=== PATIENT | female | born 1990 | race Two or more races ===

== ENCOUNTER 2024-11-23 10:18 | Emergency (ER) | payer BC, SELFPAY ==
[2024-11-23 10:23] VITALS: BP 114/63
[2024-11-23 11:45] VITALS: BMI 29.4
--- NOTE | 2024-11-23 12:20 | ED.GENMED ---
History of Present Illness
General
Chief Complaint: Back Pain
Source: patient
Exam Limitations: none
Time Seen by Provider: 11/23/24 11:08
Nursing documentation reviewed up to this point in time: agreed with
History of Present Illness
History of Present Illness:
Patient is a 33-year-old female with history of scoliosis presents to the ER for evaluation. She was bending over bathing her child last night and when she stood up felt sudden pain in her lumbar area. Denies any trauma. Pain is mostly in her
lumbar region she felt a little discomfort in her groin that resolved. She denies any bowel or bladder incontinence. She has been taking ibuprofen however this has not helped her pain. She denies any lower extremity weakness. She denies any
urinary frequency urgency or dysuria. Last menstrual period 1 month ago she is due for her period in the next several days. She denies uses condoms
Phy Exam
General Physical Exam
General Presentation: no apparent distress
General age: appears stated age
General Skin: warm and dry
General Habitus: normal
General Mental: alert
General Hydration: appears well hydrated
Neurological Exam
Neurological Exam: alert, oriented x3, no motor deficits, normal reflexs, no sensory deficits and other (Normal dorsiflexion plantarflexion bilaterally negative straight leg raise intact distal sensation)
Musculoskeletal Exam
Musculoskeletal Exam: other (normal inspection to lumbar region mild paralumbar tenderness ; no cva tenderness)
Skin Exam
Skin Exam: normal color and warm/dry
Psychiatric Exam
Psychiatric Exam: normal mood/affect
Course
Orders/Labs/Results
Orders:
Orders
11/23/24 12:19
Acetaminophen [Tylenol] 1,000 mg PO NOW STA
Cyclobenzaprine HCl [Flexeril] 10 mg PO NOW STA
Dexamethasone Pf [Decadron] 10 mg PO NOW STA
11/23/24 12:19
Lidocaine [Lidocaine 4% Patch] 1 patch TOPICAL NOW STA
Apply Lidocaine patch(s) to:: lumbar back
Vital Signs
Initial and Last Documented VS:
Initial Vital Signs
Temp Pulse Resp BP Pulse Ox
98.0 F 89 16 114/63 98
11/23/24 10:23 11/23/24 10:23 11/23/24 10:23 11/23/24 10:23 11/23/24 10:23
Last Documented Vital Signs
Temp Pulse Resp BP Pulse Ox
98.0 F 89 16 114/63 98
11/23/24 10:23 11/23/24 10:23 11/23/24 10:23 11/23/24 10:23 11/23/24 10:23
MDM/Problems Addressed
Differential Diagnosis Includes:
Not limited to muscle sprain strain
MDM/Problems Addressed:
Symptoms are consistent muscle sprain strain. No radicular signs, and normal neurological exam. Will DC with 1 dose of Decadron today however we will hold off on steroids and have patient take NSAIDs along with Tylenol Flexeril as needed and
lidocaine patch. Discussed close the patient follow-up family doctor and Ortho if needed.
Chronic conditions affecting care:
Scoliosis
*Pulse Oximetry
SaO2: 98
Oxygen Mode of Delivery: Room air
Patient hypoxic: no
*Critical Care Note
Total Time (30-74mins, 75-104mins- exclusive of procedures): Not Applicable
ED Attending Note
-
Portions of this chart may have been created with voice recognition software.� Occasional wrong word or��sound alike� substitutions may have occurred due to the inherent limitations of voice recognition software.
Discharge Plan
Departure
Patient Disposition: Home (Routine Discharge)
Date of Disposition: 11/23/24
Time of Disposition: 12:24
Patient with high blood pressure during this ER visit?: No
Condition: Fair
Covid-19: Not Applicable
Discharge Problem:
Lumbar strain
Instructions: Low Back Pain (DC), Muscle strain - ED (DC)
Prescriptions:
New
cyclobenzaprine 10 mg tablet
10 mg PO Q8H PRN (Reason: muscle spasm) Qty: 10 0RF
lidocaine 5 % adhesive patch,medicated
1 patch topical DAILY Qty: 15 0RF
Referrals:
NONE,* [Family Provider, Internal Medicine]
Claudio Santiago MD [Active, Orthopedics]
Activity Restrictions/Additional Instructions:
As discussed ice the affected area for the next 24 hours followed by warm moist heat 20 minutes at a time several times a day. Today you may continue to take Flexeril as needed every 8 hours and Tylenol. Tomorrow you may start ibuprofen every 8
hours alternating with Tylenol. You may continue Flexeril 10 mg every 8 hours as needed . This medication is a muscle laxer will cause drowsiness. No driving or drinking alcohol while taking this medication.
See family doctor in the next several days for reevaluation return if any worsening of symptoms of increasing pain loss of bowel or bladder weakness lower extremities. Follow-up with orthopedics if needed.
As discussed avoid lifting and bending however gentle walking is okay and encouraged.
Interventions
Interventions:
*Risk Screen - Suicide Last Done: 11/23/24 10:23
*General Assessment Last Done: 11/23/24 11:45
*Neglect/Abuse Screening Last Done: 11/23/24 10:23
*ED- Fall Risk Assessment Last Done: 11/23/24 11:45
*ED COVID-19 Vaccine History Last Done: 11/23/24 11:47
ED-Musculoskeletal Assessment Last Done: 11/23/24 11:45
Discharge Date and Time
Print Language: BURMESE
[2024-11-23] MEDS: TYLENOL 1000 MG PO (12:35)
[2024-11-23] MEDS: DECADRON 10 MG PO (12:35)
[2024-11-23] MEDS: FLEXERIL 10 MG PO (12:35)
[2024-11-23] MEDS: LIDOCAINE 4% PATCH 1 PATCH TOPICAL (12:35)
--- NOTE | 2024-11-23 12:51 | EDRN ---
Reviewed discharge instructions with patient. Verbalized understanding. Ambulated with steady gait to the lobby.
[2024-11-23 12:52] VITALS: BP 116/74
== END 2024-11-23 12:53 | disposition home or self-care (01) ==
LOC: EMR 10:18
PROVIDERS: EMERGENCY PHYSICIAN Emergency Medicine
DX: S39.012A Strain of muscle, fascia and tendon of lower back, initial encounter (principal); X50.1XXA Overexertion from prolonged static or awkward postures, initial encounter; M41.9 Scoliosis, unspecified
CPT/HCPCS: 99283

== ENCOUNTER 2025-02-22 09:51 | Emergency (ER) | payer OTHER, SELFPAY ==
[2025-02-22 09:58] VITALS: BP 156/83
[2025-02-22 10:20] LABS: Urine Character Clear (Clear)
--- NOTE | 2025-02-22 10:23 | ED.GENMED ---
History of Present Illness
General
Chief Complaint: Abdominal Pain
Source: patient
Exam Limitations: none
Time Seen by Provider: 02/22/25 10:07
History of Present Illness
History of Present Illness:
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 Symptoms began yesterday morning. She reports an intermittent sharp pain in her right upper quadrant. She also noticed foul-smelling urine a few
days ago. She has chronic palpitations but states that her heart is more 'stingy' than usual. Patient has been researching her symptoms online and she is worried due to her history of polysplenia. She denies any postprandial pain or pleuritic
pain. No shortness of breath, fevers, vomiting. No prior abdominal surgeries.
Phy Exam
General Physical Exam
General Presentation: well appearing and no apparent distress
General Skin: warm and dry
General Habitus: normal
General Mental: alert
ENT Exam
ENT Exam: normocephalic
Cardiovascular Exam
Cardiovascular Exam: regular rate/rhythm and no murmur
Pulmonary Exam
Pulmonary Exam: lungs clear, no respiratory distress, no rales, no crackles, no rhonchi and no wheezing
Gastrointestinal Exam
Gastrointestinal Exam: non tender, soft, non distended and no cva tenderness
Neurological Exam
Neurological Exam: alert
Nolan Coma Scale
Eye Opening: Spontaneous
Verbal Response: Oriented
Motor Response: Obeys Commands
GCS Total Score: 15
Skin Exam
Skin Exam: normal color and warm/dry
Psychiatric Exam
Psychiatric Exam: normal mood/affect
Course
Orders/Labs/Results
Orders:
Orders
02/22/25 10:02
Electrocardiogram (*1) Urgent
Reason for Study: Abdominal Pain
EKG- Treatment ONCE
Test Result ONCE
02/22/25 10:05
Urinalysis Reflex To Culture Urgent
Date Specimen was Collected: 02/22/25
Time Specimen was Collected: 10:02
Urine Microscopic Reflex Cult Urgent
Urine Culture Urgent
[facility] Source: U
Specimen Description:
Date Specimen was Collected: 02/22/25
Time Specimen was Collected: 10:02
02/22/25 10:36
CT Abd/pelvis W Iv Cont Urgent
Comment:
Reason For Exam: RUQ pain, hx of situs inversus
02/22/25 10:39
Complete Blood Count/With Diff Urgent
Comprehensive Metabolic Panel Urgent
HCG, Serum Qualitative Screen Urgent
Lipase Urgent
02/22/25 10:42
Troponin I Urgent
Abnormal Lab Results
02/22/25 02/22/25
10:05 10:39
RBC 4.08 L 10^6/uL
(4.20-5.40)
Hct 35.3 L %
(37.0-47.0)
Absolute Monos (auto) 0.9 H 10^3/uL
(0.1-0.6)
Monocytes % 12.7 H %
(1.7-9.3)
Chloride 108 H mmol/L
(98-107)
Creatinine 0.5 L mg/dL
(0.6-1.0)
Ur Occult Blood Reflex 4+ A
(Negative)
Urine Nitrite (Reflex) Positive A
(Negative)
Leukocyte Esterase Rfl 3+ A
(Negative)
Urine RBC 7-10 A /HPF
(0-2)
Urine WBC (Reflex) 50-60 A /HPF
(0-5)
Urine Bacteria (Reflex) Few A
(Negative)
Urine Albumin (Reflex) 2+ A
(Neg - Trace)
02/22/25 10:39
02/22/25 10:39
Vital Signs
Initial and Last Documented VS:
Initial Vital Signs
Temp Pulse Resp BP Pulse Ox
98.4 F 103 20 156/83 100
02/22/25 09:58 02/22/25 09:58 02/22/25 09:58 02/22/25 09:58 02/22/25 09:58
Last Documented Vital Signs
Temp Pulse Resp BP Pulse Ox
98.4 F 103 20 156/83 100
02/22/25 09:58 02/22/25 09:58 02/22/25 09:58 02/22/25 09:58 02/22/25 10:23
MDM/Problems Addressed
Differential Diagnosis Includes:
34yoF here with RUQ pain x 1 day with foul smelling urine. Hx of situs inversus and polysplenia. She is hypertensive in triage. Temp 98.4. Abdominal exam benign. Differential diagnosis includes: pyelonephritis, splenic infarct, splenomegaly,
musculoskeletal pain, less likely pulmonary in etiology as she denies SOB and oxygen saturation is 100%
Initial ED plan: Check abdominal labs, HCG, troponin/EKG, UA, and CT abdomen.
*Pulse Oximetry
SaO2: 100
Oxygen Mode of Delivery: Room air
Patient hypoxic: no
*EKG
Interpreted by ED Provider?: Yes
EKG Intrepretation Date: 02/22/25
Heart Rate: 103
Rate: tachycardiac
Rhythm: sinus
Lester: normal axis
Interval: normal interval
QRS Pattern: normal QRS
Ischemia: no ischemia
*Critical Care Note
Total Time (30-74mins, 75-104mins- exclusive of procedures): Not Applicable
Update Note
Update Note:
CT shows a subtle hypoenhancement of the upper pole of the right kidney raising suspicious for mild pyelonephritis. UA is nitrite positive with 50-60 WBCs. Labs unremarkable including normal white count and renal function. No indication for
hospitalization. She was started on a course of cefdinir. Supportive care discussed including hydration. She was instructed to follow-up closely with her PCP and ED return precautions reviewed. Patient and mother in agreement with plan and she
was discharged in stable condition.
ED Attending Note
-
Portions of this chart may have been created with voice recognition software.� Occasional wrong word or��sound alike� substitutions may have occurred due to the inherent limitations of voice recognition software.
Discharge Plan
Departure
Patient Disposition: Home (Routine Discharge)
Date of Disposition: 02/22/25
Time of Disposition: 13:00
Patient with high blood pressure during this ER visit?: Yes
Discharge Problem:
Pyelonephritis
Instructions: Urinary tract infections in adults
Prescriptions:
New
cefdinir 300 mg capsule
300 mg PO BID Qty: 14 0RF
No Action
cyclobenzaprine 10 mg tablet
10 mg PO Q8H PRN (Reason: muscle spasm) Qty: 10 0RF
lidocaine 5 % adhesive patch,medicated
1 patch topical DAILY Qty: 15 0RF
Referrals:
Xander Murray, [Family Provider]
Activity Restrictions/Additional Instructions:
Take antibiotics as prescribed. Drink plenty of fluids and stay hydrated. You may take ibuprofen as needed for pain.
Please follow-up with your family doctor in the next 3 to 4 days. Return to the ER with any new or worsening symptoms including fevers or if you are unable to keep down your medications.
Interventions
Interventions:
*Neglect/Abuse Screening Last Done: 02/22/25 09:58
*Risk Screen - Suicide (C-SSRS) Last Done: 02/22/25 09:58
PE-Dkzzcb-Ffgmrzjtgr Assessment Last Done: 02/22/25 10:31
Discharge Date and Time
Print Language: SRI LANKAN
[2025-02-22 10:36] LABS: Urine White Cell 50-60 /HPF (0-5)
[2025-02-22 10:55] LABS: Hematocrit 35.3 % (37.0-47.0); Hemoglobin 12.0 g/dL (12.0-16.0); Mean Corp Hgb Conc. 34.0 g/dL (33.0-37.0); Mean Corpuscular Volume 86.5 fL (81.0-99.0); Nucleated Red Blood Cells % 0 %; Platelet Count 277 10^3/uL (130-400); Red Cell Dist. Width 12.5 % (11.5-14.5)
[2025-02-22 11:05] LABS: ALT (SGPT) 27 U/L (0-35); AST (SGOT) 22 U/L (14-36); Albumin 4.0 g/dl (3.5-5.0); Alkaline Phosphatase 62 U/L (38-126); Blood Urea Nitrogen 10 mg/dl (7-17); Calcium 9.0 mg/dl (8.4-10.2); Carbon Dioxide 25 mmol/L (22-30); Chloride 108 mmol/L (98-107); Glucose 99 mg/dl (70-99); Lipase 98 U/L (23-300); Potassium 4.4 mmol/L (3.5-5.1); Sodium 139 mmol/L (135-145); Total Protein 7.9 g/dl (6.3-8.2); eGFR > 60.00
[2025-02-22 11:15] LABS: Troponin I < 0.012 ng/ml
[2025-02-22 11:18] LABS: HCG, Serum Qualitative Screen Negative
[2025-02-22 13:31] VITALS: BP 122/95
== END 2025-02-22 13:32 | disposition home or self-care (01) ==
LOC: EMR 09:51
PROVIDERS: Emergency Medicine; Physician Assistant; EMERGENCY PHYSICIAN Student in an Organized Health Care Education/Training Program; FAMILY PHYSICIAN Family Medicine
DX: N12 Tubulo-interstitial nephritis, not specified as acute or chronic (principal); B96.20 Unspecified Escherichia coli [E. coli] as the cause of diseases classified elsewhere; Q89.09 Congenital malformations of spleen; Q89.3 Situs inversus
CPT/HCPCS: 99284; 74177; 80053; 81003; 81015; 83690; 84484; 84703; 85025; 87086; 93005; Q9967

== ENCOUNTER 2025-02-25 10:55 | Emergency (ER) | payer OTHER, SELFPAY ==
[2025-02-25 10:58] VITALS: BP 142/84
[2025-02-25 11:42] LABS: Urine Character Clear (Clear)
[2025-02-25 11:46] LABS: Hematocrit 37.5 % (37.0-47.0); Hemoglobin 12.7 g/dL (12.0-16.0); Mean Corp Hgb Conc. 33.9 g/dL (33.0-37.0); Mean Corpuscular Volume 86.2 fL (81.0-99.0); Nucleated Red Blood Cells % 0 %; Platelet Count 285 10^3/uL (130-400); Red Cell Dist. Width 12.3 % (11.5-14.5)
[2025-02-25 11:51] LABS: ALT (SGPT) 23 U/L (0-35); AST (SGOT) 20 U/L (14-36); Albumin 4.3 g/dl (3.5-5.0); Alkaline Phosphatase 60 U/L (38-126); Blood Urea Nitrogen 9 mg/dl (7-17); Calcium 9.2 mg/dl (8.4-10.2); Carbon Dioxide 26 mmol/L (22-30); Chloride 105 mmol/L (98-107); Glucose 99 mg/dl (70-99); Potassium 3.8 mmol/L (3.5-5.1); Sodium 139 mmol/L (135-145); Total Protein 8.6 g/dl (6.3-8.2); eGFR > 60.00
[2025-02-25 13:16] VITALS: BP 125/65
[2025-02-25 13:26] LABS: Urine Red Blood Cell 0-2 /HPF (0-2); Urine Squamous Cell 16-20 /LPF (Few)
[2025-02-25 14:04] VITALS: BP 120/64
[2025-02-25] MEDS: NSS 1000 IV (14:06)
[2025-02-25 14:36] LABS: COVID-19 Antigen Negative (Negative)
[2025-02-25 15:00] VITALS: BP 116/63
[2025-02-25 16:00] VITALS: BP 119/68
[2025-02-25] MEDS: TORADOL 30 MG IV (16:12)
--- NOTE | 2025-02-25 16:58 | ED.GENMED ---
History of Present Illness
General
Chief Complaint: Fever
Time Seen by Provider: 02/25/25 13:08
History of Present Illness
History of Present Illness:
see MD,
Phy Exam
Physical Exam
Physical Exam:
SEE MDM
Course
Orders/Labs/Results
Orders:
Orders
02/25/25 11:10
Urinalysis Reflex To Culture Urgent
Date Specimen was Collected: 02/25/25
Time Specimen was Collected: 11:03
Urine Microscopic Reflex Cult Urgent
Urine Culture Urgent
[facility] Source: U
Specimen Description:
Date Specimen was Collected: 02/25/25
Time Specimen was Collected: 11:03
02/25/25 11:17
Complete Blood Count/With Diff Urgent
Comprehensive Metabolic Panel Urgent
Lactic Acid Urgent
Blood Culture Urgent
[facility] Source: Blood/Venous
Specimen Description:
Date Specimen was Collected: 02/25/25
Time Specimen was Collected: 11:03
02/25/25 13:47
0.9% Sodium Chloride 1000 ml [Nss] 1,000 ml IV BOLUS
02/25/25 13:52
COVID-19 Antigen Urgent
Source: Nasal Swab
Lactic Acid Urgent
Blood Culture Q30M
[facility] Source: Blood/Venous
Specimen Description:
Blood Culture Q30M
[facility] Source: Blood/Venous
Specimen Description:
Influenza A+B Rapid Molecular Urgent
[facility] Source: Nasal Swab
Specimen Description:
02/25/25 16:05
Ketorolac [Toradol] 30 mg IV NOW STA
Abnormal Lab Results
02/25/25 02/25/25
11:10 11:17
Absolute Monos (auto) 0.7 H 10^3/uL
(0.1-0.6)
Monocytes % 12.9 H %
(1.7-9.3)
Creatinine 0.5 L mg/dL
(0.6-1.0)
Total Protein 8.6 H g/dl
(6.3-8.2)
Leukocyte Esterase Rfl 2+ A
(Negative)
Urine Bacteria (Reflex) Few A
(Negative)
02/25/25 11:17
02/25/25 11:17
Vital Signs
Initial and Last Documented VS:
Initial Vital Signs
Temp Pulse Resp BP Pulse Ox
37.1 C 107 20 142/84 100
02/25/25 10:58 02/25/25 10:58 02/25/25 10:58 02/25/25 10:58 02/25/25 10:58
Last Documented Vital Signs
Temp Pulse Resp BP Pulse Ox
36.8 C 85 16 119/68 100
02/25/25 15:43 02/25/25 15:43 02/25/25 15:43 02/25/25 16:00 02/25/25 16:15
MDM/Problems Addressed
MDM/Problems Addressed:
Note:
CHIEF COMPLAINT(S)
Persistent fever, body aches, and chills despite antibiotic treatment for a mild kidney infection.
HISTORY OF PRESENT ILLNESS
The patient is a 34-year-old female who presents with persistent fevers, body aches, and chills after starting antibiotics on Thursday for a mild kidney infection, diagnosed two days prior during an ER visit. She reports low-grade fevers ranging
from 100�F to 100.4�F, with body aches, chills, and feeling extremely hot once the fever subsides. The patient mentions alternating between Ibuprofen and Acetaminophen to manage symptoms, which results in the return of fever once the medication
wears off.
The patient also developed diarrhea, which she suspects may be due to the antibiotics. She called the facility this morning, and was informed the urine culture indicates the current antibiotic treatment is appropriate for the bacteria identified, as
coverage was deemed adequate. No prior respiratory symptoms such as sore throat or cough were reported.
Additionally, the patient has a condition known as situs inversus, where her organs are on opposite sides, discovered following a past diagnosis of kidney stones. The patient expressed concern about potential worsening of her condition, including
possible bacteremia, although preliminary blood work shows normal white blood cell counts and improved urine findings.
As preventive measures, the patient will be swabbed for influenza and COVID-19, given the prevalence of the flu in the community, and her symptoms aligning with possible viral infection symptoms.
PAST MEDICAL AND SURIGICAL HISTORY
History of situs inversus and previous kidney stones.
REVIEW OF SYSTEMS
- Constitutional: Fevers, body aches, chills, feeling hot after fever subsides.
- Gastrointestinal: Diarrhea developing after antibiotic usage.
PHYSICAL EXAM
- Nursing notes reviewed and vital signs reviewed.
GENERAL: Alert , in no apparent distress, very well-appearing
EYE: pupils equal and reactive
NECK: Supple
ENT: o/p clr, mmm.
CARDIAC: Regular rate and rhythm .
LUNGS: Clear breath sounds bilaterally, no acute respiratory distress, no wheezes/rales/rhonchi
ABDOMEN: Soft, without focal tenderness, no r/g, no cvat, normal bowel sounds
NEUROLOGICAL: Alert and oriented, no focal neuro deficits
SKIN: Warm and dry, skin intact.
MUSCULOSKELETAL: No edema, well perfused. neg keli's sign
PSYCH: Normal and appropriate interaction.
PLAN
- Administer intravenous fluids to counteract dehydration from persistent fever.
- Conduct influenza and COVID-19 swabs.
- If the patient needs to produce a stool sample, it will be sent for further testing to rule out gastrointestinal pathogens potentially related to recent antibiotic usage.
- If symptoms persist or worsen, consider additional blood cultures to rule out bacteremia.
- Continue monitoring and reassess once further test results are obtained.
DIFFERENTIAL DIAGNOSIS
The Differential Diagnosis includes, in no particular order and is not limited to:
1. Influenza
2. COVID-19
3. Antibiotic-associated diarrhea
4. Viral gastroenteritis
5. Fever of unknown origin
6. Kidney infection exacerbation
7. Drug reaction
8. Bacteremia
9. Urinary Tract Infection
10. Dehydration due to fever and diarrhea
CARE-UPDATE
02/25/25 - 16:04
Lactic acid levels and white blood cell count are normal, . Urine analysis shows improvement, urine culture is E. coli pansensitive and she is on cefdinir which seems appropriate to treat this. The patient reports low-grade fevers, body aches,
chills, and intermittent feelings of heat. Blood cultures have been sent to rule out blood infection; results are pending. Current antibiotic regimen appears to be effective and will be extended by three more days, totaling ten days. Administered IV
Toradol for body aches. If symptoms worsen or the blood culture returns positive, patient will need to be admitted. Patient instructed to return if experiencing vomiting or severe shaking chills, and they may call for culture results the following
afternoon.
I did offer observation admission or failure of outpatient therapy admission but the patient did feel comfortable going home. She has not had a fever at all here which is reassuring
*Pulse Oximetry
SaO2: 100
Oxygen Mode of Delivery: Room air
Patient hypoxic: no (100)
*Critical Care Note
Total Time (30-74mins, 75-104mins- exclusive of procedures): Not Applicable
ED Attending Note
-
Portions of this chart may have been created with voice recognition software.� Occasional wrong word or��sound alike� substitutions may have occurred due to the inherent limitations of voice recognition software.
Discharge Plan
Departure
Patient Disposition: Home (Routine Discharge)
Date of Disposition: 02/25/25
Time of Disposition: 16:23
Patient with high blood pressure during this ER visit?: No
Condition: Fair
Covid-19: Not Applicable
Discharge Problem:
Pyelonephritis
Instructions: Urinary tract infection in adults - ED (DC)
Prescriptions:
New
cefdinir 300 mg capsule
300 mg PO BID Qty: 6 0RF
No Action
cyclobenzaprine 10 mg tablet
10 mg PO Q8H PRN (Reason: muscle spasm) Qty: 10 0RF
lidocaine 5 % adhesive patch,medicated
1 patch topical DAILY Qty: 15 0RF
cefdinir 300 mg capsule
300 mg PO BID Qty: 14 0RF
Referrals:
NONE,* [Family Provider, Internal Medicine]
Activity Restrictions/Additional Instructions:
It seems as if your urine is improved with the antibiotics. You had no fever here but continue to monitor at home.
Drink plenty of fluids and rest. Take Tylenol or ibuprofen for pain and fever.
We will call you in 24 to 48 hours if your blood cultures are positive, that would require you to come back to the hospital. In the meantime continue your antibiotics
Interventions
Interventions:
*General Assessment Last Done: 02/25/25 10:58
*Neglect/Abuse Screening Last Done: 02/25/25 10:58
*ED COVID-19 Vaccine History Last Done: 02/25/25 13:12
*ED Influenza Vaccine History Last Done: 02/25/25 13:12
[facility] Fall Risk Assessment Tool Last Done: 02/25/25 13:12
*Risk Screen - Suicide (C-SSRS) Last Done: 02/25/25 13:12
*Nursing Disposition Last Done: 02/25/25 16:32
ED- Neurological Assessment Last Done: 02/25/25 13:12
ED-Skin Assessment Last Done: 02/25/25 13:12
Discharge Date and Time
Discharge Date/Time: 02/25/25 16:32
Print Language: UPPER SORBIAN
== END 2025-02-25 16:32 | disposition home or self-care (01) ==
LOC: EMR 10:55
PROVIDERS: Emergency Medicine; Physician Assistant; EMERGENCY PHYSICIAN Student in an Organized Health Care Education/Training Program
DX: N12 Tubulo-interstitial nephritis, not specified as acute or chronic (principal); E86.0 Dehydration; Z87.442 Personal history of urinary calculi
CPT/HCPCS: 99284; 96374; 96361; 80053; 81003; 81015; 83605; 85025; 87040; 87086; 87502; 87811